=== PATIENT | female | born 1955 | race African-American/Black ===

== ENCOUNTER 2018-03-17 04:48 | Emergency (ER) | payer MEDICAID ==
[~2018-03-17] VITALS: Ht 165.1 cm; Wt 82.0 kg
[~2018-03-17 04:48] MED LIST: ALBU1.25 NEB; ALBU18HF INH; ALBU8.5H5 IH; AMIO200T42 PO; ASPI-496 PO; ASPI-621 PO; BUDE0.5A INH; BUDE10.2 INH; BUPR150T13 PO; CARV-39 PO; CARV12.52 PO; CEFD300C37 PO; CETI10TA18 PO; DIAZ10TA PO; DIAZ5TAB4 PO; DIVA500T17 PO; DOXY100T PO; FLUT16SP2 INH; FLUT60LO PO; FURO40TA6 PO; HYDR115S2 PO; LISI40TA PO; LOSA50TA6 PO; MORP100T16 PO; MORP100T27 PO; MORP30TA81 PO; MORP60TA34 PO; OLOP5DRO EACHEYE; ONDA4TAB10 PO; OXYC10TA6 PO; OXYC15TA PO; OXYC15TA60 PO; OXYC5TAB3 PO; PARO40TA3 PO; POTA10TA11 PO; PRED20TA PO; ROFL500T PO; SPIR25TA5 PO; TIOT18CA INH
[2018-03-17] MEDS ORDERED: SODIUM CHLORIDE FLUSH 10ML SYR IVF ONE (05:30)
[2018-03-17 05:32] LABS: BASOPHILS # (AUTO) 0.03 x10^3/uL (0-0.1); BASOPHILS % (AUTO) 1 % (0-1); EOSINOPHILS # (AUTO) 0.02 x10^3/uL (0-0.4); EOSINOPHILS % (AUTO) 1 % (1-7); LYMPHOCYTES # (AUTO) 1.71 x10^3/uL (1-3.4); LYMPHOCYTES % (AUTO) 39 % (22-44); MD NO; MEAN CORPUSCULAR HGB CONC 35.2 g/dL (32.4-35.8); MEAN CORPUSCULAR VOLUME 93.7 fL (80-100); MEAN PLATELET VOLUME 8.4 fL (7.4-10.4); MONOCYTES # (AUTO) 0.44 x10^3/uL (0.2-0.8); MONOCYTES % (AUTO) 10 % (2-9); NEUTROPHILS # (AUTO) 2.21 x10^3/uL (1.8-6.8); NEUTROPHILS % (AUTO) 50 % (42-75); PLATELET COUNT 215 x10^3/uL (130-400); RED BLOOD COUNT 4.25 x10^6/uL (3.82-5.3); RED CELL DISTRIBUTION WIDTH 13.6 % (9.6-15.2)
[2018-03-17 05:43] LABS: ALBUMIN 3.6 g/dL (3.4-5.0); ANION GAP 6 mmol/L (5-15); CALCIUM 9.3 mg/dL (8.5-10.1); CHLORIDE 111 mmol/L (98-107); CREATININE 0.87 mg/dL (0.55-1.02)
[2018-03-17 05:48] LABS: TROPONIN I < 0.015 ng/mL (0.000-0.045)
[2018-03-17 05:53] LABS: INTERNATIONAL NORMALIZED RATIO 1.02 (0.93-1.1); PROTHROMBIN TIME 10.6 Seconds (9.6-11.5)
[2018-03-17] MEDS ORDERED: ACETAMINOPHEN 325 MG TABLET PO ONE (07:00)
[2018-03-17 07:03] VITALS: BP 146/70
[2018-03-17] MEDS ORDERED: ACETAMINOPHEN 325 MG TABLET ONE (07:08)
== END 2018-03-17 07:41 | disposition home or self-care (01) ==
LOC: ED 06:45
DX: R07.89 Other chest pain (principal); J44.9 Chronic obstructive pulmonary disease, unspecified; I25.10 Atherosclerotic heart disease of native coronary artery without angina pectoris; I10 Essential (primary) hypertension; F17.200 Nicotine dependence, unspecified, uncomplicated; F31.9 Bipolar disorder, unspecified; Z86.19 Personal history of other infectious and parasitic diseases
CPT/HCPCS: 36415; 71045; 80048; 80307; 82040; 84484; 85025; 85610; 85730; 93005; 99285